=== PATIENT | male | born 1955 | race Caucasian/White ===

== ENCOUNTER 2020-10-26 07:13 | Emergency (ER) | payer OTHER, MEDICAID ==
[~2020-10-26] VITALS: Ht 172.7 cm; Wt 86.2 kg
[2020-10-26 07:41] VITALS: BP 165/119
[2020-10-26] MEDS ORDERED: KETOROLAC TROMETH 60MG/2ML VIAL IM ONE (07:45)
== END 2020-10-26 09:04 | disposition home or self-care (01) ==
LOC: ER 07:13
DX: S39.012A Strain of muscle, fascia and tendon of lower back, initial encounter (principal); M54.16 Radiculopathy, lumbar region; M48.061 Spinal stenosis, lumbar region without neurogenic claudication; I10 Essential (primary) hypertension; W01.0XXA Fall on same level from slipping, tripping and stumbling without subsequent striking against object, initial encounter; Y93.89 Activity, other specified; Y92.89 Other specified places as the place of occurrence of the external cause; Y99.8 Other external cause status
CPT/HCPCS: 72131; 96372; 99284; J1885